=== PATIENT | male | born 1960 | race Caucasian/White ===

== ENCOUNTER → 2017-08-09 | Outpatient (CLI) | payer OTHER ==
[~2017-08-09] MED LIST: ALPRAZOLAM 0.50.5 M1 PO; GLUCOSAMINE &1 EAC1 PO; LIPITOR20 MG PO; MULTIVITAMINS PO; PERCOCET 5-3251 EACH PO; PREVACID15 MG PO; XARELTO10 M1 PO
== END ==
LOC: CAT 13:05
DX: K40.90 Unilateral inguinal hernia, without obstruction or gangrene, not specified as recurrent (principal); K63.89 Other specified diseases of intestine; M47.897 Other spondylosis, lumbosacral region

== ENCOUNTER → 2017-08-22 | Outpatient (CLI) | payer OTHER | LOC: NUC 08:03 | DX: R10.11 Right upper quadrant pain (principal) ==